=== PATIENT | male | born 1990 | race Two or more races ===

== ENCOUNTER 2021-11-24 10:20 | Emergency (ER) | payer MEDICAID ==
[~2021-11-24] VITALS: Ht 167.6 cm; Wt 78.0 kg
[2021-11-24 10:23] VITALS: BP 170/100
[2021-11-24] MEDS ORDERED: TETANUS, DIPHTHERIA, PERTUSSIS VAC/PF 0.5ML (>10YR OLD) IM ONE (10:45)
[2021-11-24] MEDS ORDERED: HYDROCODONE/ACETAMINOPHEN 5/325MG TABLET PO ONE (10:45)
[2021-11-24] MEDS ORDERED: LIDOCAINE HCL/EPINEPHRINE 1%-EPI 1:100,000 20 ML VIAL INFIL ONE (10:45)
[2021-11-24] MEDS ORDERED: BACITRACIN ZINC OINT UDPKT TOP ONE (10:45)
[2021-11-24] MEDS ORDERED: KETOROLAC 60MG/2ML VIAL IM ONE (11:45)
[2021-11-24] MEDS ORDERED: AMOX1TAB16 MT (13:59)
[2021-11-24] MEDS ORDERED: HYDR-4001 MT (13:59)
== END 2021-11-24 14:30 | disposition home or self-care (01) ==
LOC: ER 10:34
DX: S61.451A Open bite of right hand, initial encounter (principal); W54.0XXA Bitten by dog, initial encounter; Y93.89 Activity, other specified; Y92.018 Other place in single-family (private) house as the place of occurrence of the external cause
CPT/HCPCS: 12002; 73090; 73120; 90471; 90715; 96372; 99284; J1885; J3490

== ENCOUNTER 2021-12-08 14:33 | Emergency (ER) | payer MEDICAID ==
[~2021-12-08] VITALS: Ht 167.6 cm; Wt 75.0 kg
[~2021-12-08 14:33] MED LIST: AMOX1TAB16 MT; HYDR-4001 MT
[2021-12-08 14:41] VITALS: BP 132/77
== END 2021-12-08 16:20 | disposition home or self-care (01) ==
LOC: ER 14:42
DX: Z48.02 Encounter for removal of sutures (principal)
CPT/HCPCS: 99281

== ENCOUNTER 2023-12-31 05:42 | Emergency (ER) | payer MEDICAID ==
[~2023-12-31] VITALS: Ht 167.6 cm; Wt 70.0 kg
[2023-12-31 05:55] VITALS: O2SAT 98
[2023-12-31] MEDS: ONDANSETRON HCL 4MG/2ML INJ IV STA (06:31)
[2023-12-31] MEDS: MORPHINE SULFATE 4 MG/ML INJ (FOR IV/IM USE) IV STA (06:31)
[2023-12-31] MEDS ORDERED: TOPUD PO (07:43)
[2023-12-31] MEDS: LIDOCAINE HCL/PF 1% 10 MG/ML 5ML VIAL INFIL ONE (10:22)
[2023-12-31] MEDS ORDERED: CEPH500T MT (11:02)
[2023-12-31] MEDS: CEPHALEXIN 250MG CAPSULE PO NR (11:12)
[2023-12-31 11:37] VITALS: BP 119/82; PULSE 54; RESP 10; TEMP 97.4
== END 2023-12-31 12:10 | disposition home or self-care (01) ==
LOC: ER 05:42
DX: S01.21XA Laceration without foreign body of nose, initial encounter (principal); F17.200 Nicotine dependence, unspecified, uncomplicated; F12.10 Cannabis abuse, uncomplicated; Y04.0XXA Assault by unarmed brawl or fight, initial encounter; Y93.89 Activity, other specified; Y92.89 Other specified places as the place of occurrence of the external cause; Y99.8 Other external cause status
CPT/HCPCS: 70450; 70486; 96374; 96375; 99285; J3490; J2405; J2270; Z7610 ×3